=== PATIENT | female | born 1960 | race Caucasian/White ===

== ENCOUNTER 2025-01-21 05:48 | Day surgery (SDC) | payer OTHER, SELFPAY ==
[2025-01-21 06:15] VITALS: BMI 25.1
[2025-01-21 06:19] VITALS: BMI 25.1
--- NOTE | 2025-01-21 06:23 | PTCARENOTE ---
Patient bumped L hand on the side rail and it caused an abrasion to the L knuckle. covered with a bandaid. Dime sized skin tear.
[2025-01-21] MEDS: TYLENOL 1000 MG PO (06:32)
[2025-01-21] MEDS: NORMOSOL-R/PLASMALYTE-A 1000 IV (06:38)
--- NOTE | 2025-01-21 06:58 | W.SUR.PREOP ---
Pre-Operative Surgical Note
-
I have examined this patient prior to the performance of the scheduled procedure.
The patient's condition is unchanged from the time of the current History and
Physical and the patient is able to undergo the scheduled procedure.
--- NOTE | 2025-01-21 06:58 | HP.FOC2 ---
Focused History & Physical
Chief Complaint
HPI:
Chief Complaint: Posterior neck mass
HPI / Indication for Planned Procedure: This is a 64-year-old female who presents with a symptomatic posterior neck mass, likely lipoma. Will plan for excision in the OR
Relevant Past Medical History: Negative
Relevant Social History: Negative
Relevant Family History: Negative
Relevant Past Surgical History: Negative
Review of Systems
Review of Pertinent Systems: All Systems Negative
Medication
See Medication form for detailed medications: Yes
Medication List (including Herbals & OTC):
ibuprofen 200 mg capsule 200 mg PO Q6H PRN pain 01/19/25
Medications Reviewed: Yes
Allergies and Reactions
Patient has Allergies: No
Noted Allergies and Reactions:
Allergy/AdvReac Type Severity Reaction Status Date / Time
No Known Allergies Allergy Verified 01/21/25 06:24
Pertinent Physical Exam
All Other Systems: Negative
Head/Neck: Normal
Diagnosis / Assessment
This is a 64-year-old female who presents with a symptomatic posterior neck mass, likely lipoma. Will plan for excision in the OR
Plan / Procedure
This is a 64-year-old female who presents with a symptomatic posterior neck mass, likely lipoma. Will plan for excision in the OR
Anesthesia/Sedation to be done by Anesthesia Provider: Yes
--- NOTE | 2025-01-21 08:32 | W.IMMPOSTOP ---
Surgical Immed Post Op Note
-
Primary Surgeon: Lele Randall MD
Assisting Surgeon: None
Pre-op Diagnosis: Posterior neck lipoma
Post-op Diagnosis: Same
Procedure Performed: Excision of a posterior neck lipoma
Anesthesia Type: General
Specimen / Cultures: Posterior neck lipoma
Estimated Blood Loss: 1 cc
Complications: None
Operative Findings: 11 x 5 x 2 cm unencapsulated cord lipoma with multiple interdigitation's into the surrounding tissue. Wound closed in layers.
[2025-01-21 08:34] VITALS: BP 97/50
--- NOTE | 2025-01-21 08:35 | OR.RPT ---
Operative Report
Operative Report
Patient Name: Annika Hammonds
: 1960
Date of Operation: 01/21/2025
Preoperative Diagnosis: Posterior neck lipoma
Postoperative Diagnosis: Same
Procedure(s):
Excision of a posterior neck lipoma
Surgeon(s):
Dr. Randall
Geology Faculty Member(s):
EZEKIEL Wilson
Anesthesia: MAC
Estimated Blood Loss: 1 cc
Urine Output: None
Drains/Lines/Implants: None
Specimens:
1. Lipoma
Indication for surgery:
This is a 64-year-old female with a lump on her posterior neck that she has known about for several years that has grown recently and become more symptomatic. After evaluation in the office they were diagnosed with a lipoma. After discussion of
risk benefits and alternatives they elected and were consented for surgery.
Operative Findings: 11 x 5 x 2 cm unencapsulated lipoma with multiple interdigitation's into the surrounding tissue. Wound closed in layers.
Details of the operation:
The patient was brought to the operating room a placed in the prone position. After appropriate sedation by anesthesia, the area of the posterior neck was prepped and draped in the usual fashion. A linear incision over natural skin line was made
over the mass and carried down through the subcutaneous tissue. The Lipoma was identified and found to be unencapsulated and densely adherent into the surrounding tissues. The lipoma was freed circumferentially taking care not to come across the
many interdigitating extensions that it had. The specimen which measured roughly 11 x 5 x 2 cm was passed off the field. The cavity was irrigated and hemostasis was achieved. The space was closed with interrupted 3-0 Vicryl sutures. The dermis
was then approximated using interrupted 3-0 Vicryl sutures followed by a running 4-0 monocryl, followed by dermabond. All counts were correct at the end of procedure. The patient was then transferred to the PACU for recovery.
I was the attending physician and performed the procedure with assistance of the PA above. The assistance of EZEKIEL Wilson was required due to the complexity of the procedure. During the procedure assisted with retraction, resection, and
closure of the wound. I was present for all portions of the case, excluding skin closure.
Lele Randall MD
[2025-01-21 08:45] VITALS: BP 98/58
[2025-01-21 09:00] VITALS: BP 100/58
== END 2025-01-21 09:43 | disposition home or self-care (01) ==
LOC: SDS 05:48
PROVIDERS: ATTENDING PHYSICIAN Surgery
DX: D17.0 Benign lipomatous neoplasm of skin and subcutaneous tissue of head, face and neck (principal)
CPT/HCPCS: 21552; 88304